=== PATIENT | female | born 1970 | race Caucasian/White ===

== ENCOUNTER 2021-05-30 18:54 | Emergency (ER) | payer MEDICARE ==
[~2021-05-30 18:54] MED LIST: CYMBALTA60 MG PO; FLEXERIL10 MG PO; KLONOPIN0.5 MG PO; MIRENA1 EACH IY; OTEZLA30 MG PO; TOPAMAX50 MG PO; TRAMADOL HCL50 MG PO; VIT B12 PO
[2021-05-30 19:52] LABS: BASOPHIL 0.3 % (0-2); EOSINOPHIL 0.8 % (0-5); HCT 40.5 % (37.0-47.0); LYMPHOCYTE 5.1 % (15-48); MCH 31.9 pg (25.0-31.0); MCHC 34.6 g/dL (32.0-36.0); MCV 92.3 fL (78.0-100.0); MONOCYTE 2.4 % (0-12); MPV 10.4 fL (6.0-9.5); NEUTROPHIL 89.7 % (41-80); NRBC 0; PLT 171 K/uL (150-400); RBC 4.39 M/uL (4.20-5.40); RDW 12.8 % (11.5-14.0)
[2021-05-30 20:06] LABS: ALBUMIN 3.4 g/dL (3.4-5.0); BILIRUBIN - TOTAL 0.8 mg/dL (0.2-1.0); BUN/CREAT RATIO (CALC) 20.5 RATIO; CREATININE 0.83 mg/dL (0.51-0.95); POTASSIUM 3.6 mmol/L (3.5-5.1); TOTAL PROTEIN 7.4 g/dL (6.4-8.2)
[2021-05-30 20:15] LABS: LACTIC ACID 1.6 mmol/L (0.4-1.9)
[2021-05-30] MEDS ORDERED: NORCO 5-325 TA1 EACH PO (22:41)
[2021-05-30] MEDS ORDERED: BACTRIM DS TAB1 EACH PO (22:41)
[2021-05-30] MEDS ORDERED: KEFLEX250 MG PO (22:41)
[2021-05-30] MEDS ORDERED: ONDANSETRON ODT4 MG SL (22:41)
== END 2021-05-31 00:05 | disposition home or self-care (01) ==
LOC: FER 18:54
PROVIDERS: Emergency Medicine Emergency Medical Services
DX: L03.116 Cellulitis of left lower limb (principal); F17.210 Nicotine dependence, cigarettes, uncomplicated
CPT/HCPCS: 36415; 80053; 83605; 84145; 85025; 87040; J1885; J2270; J2405; J3370; J7030; J7040